=== PATIENT | male | born 1980 | race African-American/Black ===

== ENCOUNTER 2019-01-24 13:41 | Inpatient (IN) | payer OTHER ==
[2019-01-24 16:37] VITALS: BMI 29.7
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
[2019-01-24] MEDS ORDERED: MAGNESIUM CITRATE 300 ML BOTTLE PO PRN (17:35)
[2019-01-24] MEDS ORDERED: NICOTINE POLACRILEX 2 MG GUM BC PRN (17:35)
[2019-01-24] MEDS ORDERED: MAG HYDROX/AL HYDROX/SIMETH 30 ML UNIT-DOSE CUP PO PRN (17:35)
[2019-01-24] MEDS ORDERED: guaiFENesin 200 MG/10 ML 10 ML UNIT-DOSE CUPS PO PRN (17:35)
[2019-01-24] MEDS ORDERED: hydrOXYzine PAMOATE 25 MG CAPSULE (FP) PO PRN (17:35)
[2019-01-24] MEDS ORDERED: MAGNESIUM HYDROX 2400MG/30ML ORAL SUSPENSION 30 ML CUP PO PRN (17:35)
[2019-01-24] MEDS ORDERED: IBUPROFEN 400 MG TABLET (FP) PO PRN (17:35)
[2019-01-24] MEDS ORDERED: LOPERAMIDE HCL 2 MG CAPSULE PO PRN (17:35)
[2019-01-24] MEDS ORDERED: P-EPHED 60MG/TRIPROLIDI 2.5MG TABLET PO PRN (17:35)
[2019-01-24] MEDS ORDERED: MENTHOL/PHENOL 1 EACH UD MM PRN (17:35)
[2019-01-24] MEDS: QUEtiapine FUMARATE 200 MG TABLET PO SCH (21:06)
[2019-01-24] MEDS: THIAMINE HCL 100 MG TABLET (FP) PO SCH (21:07)
[2019-01-25] MEDS: PRENATAL VITAMINS W/ FOLIC ACID TABLET (FP) PO SCH (09:41)
[2019-01-25] MEDS ORDERED: MIRTAZAPINE 15 MG TABLET (FP) PO SCH (10:00)
[2019-01-25] MEDS: ACETAMINOPHEN 325 MG TABLET (FP) PO PRN (11:22)
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
[2019-01-25 14:34] LABS: HEMATOCRIT 44.4 % (35.4-49); HEMOGLOBIN 14.8 GM/dL (11.7-16.9); MCH 30.6 pg (25.7-33.7); MCHC 33.4 g/dl (32.0-35.9); MEAN CELL VOLUME 91.6 fl (80-96); MEAN PLT VOLUME 7.1 fl (7.5-11.1); PLATELET COUNT 311 K/MM3 (134-434); RBC 4.84 M/mm3 (4.00-5.60); RDW 15.6 % (11.9-15.9); WHITE BLOOD COUNT 6.9 K/mm3 (4.0-10.0)
[2019-01-25 14:39] LABS: ALBUMIN 3.8 g/dl (3.4-5.0); BILIRUBIN,TOTAL 0.4 mg/dL (0.2-1); CALCIUM 8.8 mg/dL (8.5-10.1); POTASSIUM 3.8 mmol/L (3.5-5.1); TOT PROT 7.2 g/dl (6.4-8.2)
[2019-01-25] MEDS: QUEtiapine FUMARATE 200 MG TABLET PO SCH (21:03)
[2019-01-25] MEDS: THIAMINE HCL 100 MG TABLET (FP) PO SCH (21:03)
[2019-01-26] MEDS: PRENATAL VITAMINS W/ FOLIC ACID TABLET (FP) PO SCH (09:42)
[2019-01-26 13:20] LABS: URINE APPEARANCE CLEAR; URINE BILIRUBIN NEGATIVE (NEGATIVE); URINE COLOR YELLOW; URINE GLUCOSE (UA) NEGATIVE (NEGATIVE); URINE KETONE NEGATIVE (NEGATIVE); URINE LEUK ESTERASE NEGATIVE (NEGATIVE); URINE NITRITE NEGATIVE (NEGATIVE); URINE PROTEIN NEGATIVE (NEGATIVE); URINE UROBILINOGEN 0.2 mg/dL (0.2-1.0)
[2019-01-26] MEDS: QUEtiapine FUMARATE 200 MG TABLET PO SCH (21:00)
[2019-01-26] MEDS: THIAMINE HCL 100 MG TABLET (FP) PO SCH (21:00)
[2019-01-26] MEDS: MELATONIN 5 MG TABLETS PO PRN (21:02)
[2019-01-27] MEDS: PRENATAL VITAMINS W/ FOLIC ACID TABLET (FP) PO SCH (09:49)
--- NOTE | 2019-01-27 09:59 | PN ---
J[facility] Progress Note Note: Patient requests to resume Remeron 45 mg/hs which he was on in the past and was ordered pn admission by Dr Elmore
[2019-01-27] MEDS: THIAMINE HCL 100 MG TABLET (FP) PO SCH (21:33)
[2019-01-27] MEDS: QUEtiapine FUMARATE 200 MG TABLET PO SCH (21:33)
[2019-01-27] MEDS: MIRTAZAPINE 15 MG TABLET (FP) PO SCH (21:35)
[2019-01-28] MEDS: PRENATAL VITAMINS W/ FOLIC ACID TABLET (FP) PO SCH (09:36)
[2019-01-28] MEDS: QUEtiapine FUMARATE 200 MG TABLET PO SCH (22:14)
[2019-01-28] MEDS: THIAMINE HCL 100 MG TABLET (FP) PO SCH (22:14)
[2019-01-28] MEDS: MIRTAZAPINE 15 MG TABLET (FP) PO SCH (22:15)
[2019-01-29] MEDS: PRENATAL VITAMINS W/ FOLIC ACID TABLET (FP) PO SCH (09:29)
[2019-01-29] MEDS: QUEtiapine FUMARATE 200 MG TABLET PO SCH (21:00)
[2019-01-29] MEDS: THIAMINE HCL 100 MG TABLET (FP) PO SCH (21:00)
[2019-01-29] MEDS: MIRTAZAPINE 15 MG TABLET (FP) PO SCH (21:00)
[2019-01-30] MEDS: PRENATAL VITAMINS W/ FOLIC ACID TABLET (FP) PO SCH (09:34)
[2019-01-30] MEDS: QUEtiapine FUMARATE 200 MG TABLET PO SCH (21:18)
[2019-01-30] MEDS: THIAMINE HCL 100 MG TABLET (FP) PO SCH (21:18)
[2019-01-30] MEDS: MIRTAZAPINE 15 MG TABLET (FP) PO SCH (21:18)
[2019-01-31] MEDS: PRENATAL VITAMINS W/ FOLIC ACID TABLET (FP) PO SCH (09:45)
[2019-01-31] MEDS: MIRTAZAPINE 15 MG TABLET (FP) PO SCH (21:12)
[2019-01-31] MEDS: QUEtiapine FUMARATE 200 MG TABLET PO SCH (21:12)
[2019-01-31] MEDS: THIAMINE HCL 100 MG TABLET (FP) PO SCH (21:12)
[2019-02-01] MEDS: PRENATAL VITAMINS W/ FOLIC ACID TABLET (FP) PO SCH (09:33)
[2019-02-01] MEDS: QUEtiapine FUMARATE 200 MG TABLET PO SCH (21:05)
[2019-02-01] MEDS: MIRTAZAPINE 15 MG TABLET (FP) PO SCH (21:05)
[2019-02-01] MEDS: THIAMINE HCL 100 MG TABLET (FP) PO SCH (21:05)
[2019-02-02] MEDS: PRENATAL VITAMINS W/ FOLIC ACID TABLET (FP) PO SCH (09:42)
[2019-02-02] MEDS: THIAMINE HCL 100 MG TABLET (FP) PO SCH (21:02)
[2019-02-02] MEDS: QUEtiapine FUMARATE 200 MG TABLET PO SCH (21:02)
[2019-02-02] MEDS: MIRTAZAPINE 15 MG TABLET (FP) PO SCH (21:02)
[2019-02-03] MEDS: PRENATAL VITAMINS W/ FOLIC ACID TABLET (FP) PO SCH (09:53)
[2019-02-03] MEDS: THIAMINE HCL 100 MG TABLET (FP) PO SCH (21:01)
[2019-02-03] MEDS: QUEtiapine FUMARATE 200 MG TABLET PO SCH (21:01)
[2019-02-03] MEDS: MIRTAZAPINE 15 MG TABLET (FP) PO SCH (21:01)
[2019-02-04] MEDS: PRENATAL VITAMINS W/ FOLIC ACID TABLET (FP) PO SCH (09:34)
[2019-02-04] MEDS: QUEtiapine FUMARATE 200 MG TABLET PO SCH (21:05)
[2019-02-04] MEDS: THIAMINE HCL 100 MG TABLET (FP) PO SCH (21:06)
[2019-02-04] MEDS: MIRTAZAPINE 15 MG TABLET (FP) PO SCH (21:06)
[2019-02-05] MEDS: PRENATAL VITAMINS W/ FOLIC ACID TABLET (FP) PO SCH (09:51)
[2019-02-05] MEDS ORDERED: cloNIDine HCL 0.1 MG TABLET PO ONE (20:53)
[2019-02-05] MEDS: THIAMINE HCL 100 MG TABLET (FP) PO SCH (21:04)
[2019-02-05] MEDS: QUEtiapine FUMARATE 200 MG TABLET PO SCH (21:04)
[2019-02-05] MEDS: MIRTAZAPINE 15 MG TABLET (FP) PO SCH (21:04)
[2019-02-06] MEDS: PRENATAL VITAMINS W/ FOLIC ACID TABLET (FP) PO SCH (10:00)
[2019-02-06] MEDS: QUEtiapine FUMARATE 200 MG TABLET PO SCH (21:04)
[2019-02-06] MEDS: MIRTAZAPINE 15 MG TABLET (FP) PO SCH (21:04)
[2019-02-06] MEDS: THIAMINE HCL 100 MG TABLET (FP) PO SCH (21:05)
[2019-02-07] MEDS: PRENATAL VITAMINS W/ FOLIC ACID TABLET (FP) PO SCH (09:59)
[2019-02-07] MEDS: QUEtiapine FUMARATE 200 MG TABLET PO SCH (21:10)
[2019-02-07] MEDS: THIAMINE HCL 100 MG TABLET (FP) PO SCH (21:10)
[2019-02-07] MEDS: MIRTAZAPINE 15 MG TABLET (FP) PO SCH (21:10)
[2019-02-08] MEDS: PRENATAL VITAMINS W/ FOLIC ACID TABLET (FP) PO SCH (09:54)
[2019-02-08] MEDS: THIAMINE HCL 100 MG TABLET (FP) PO SCH (21:06)
[2019-02-08] MEDS: QUEtiapine FUMARATE 200 MG TABLET PO SCH (21:06)
[2019-02-08] MEDS: MIRTAZAPINE 15 MG TABLET (FP) PO SCH (21:06)
[2019-02-09] MEDS: PRENATAL VITAMINS W/ FOLIC ACID TABLET (FP) PO SCH (10:04)
[2019-02-09] MEDS: MIRTAZAPINE 15 MG TABLET (FP) PO SCH (21:05)
[2019-02-09] MEDS: QUEtiapine FUMARATE 200 MG TABLET PO SCH (21:05)
[2019-02-09] MEDS: THIAMINE HCL 100 MG TABLET (FP) PO SCH (21:05)
[2019-02-09] MEDS: MELATONIN 5 MG TABLETS PO PRN (21:05)
[2019-02-10] MEDS: PRENATAL VITAMINS W/ FOLIC ACID TABLET (FP) PO SCH (09:40)
--- NOTE | 2019-02-10 11:50 | PN ---
[facility] Progress Note Note: patient s/p witnessed fall As per patient he went to sit on a chair, missed and fell on his buttocks Patient denies changes in mental status, reports no complaints at this time Denies pain at this time v/s stable AOx3 , no changes in LOC no adventitious breath sound no signs of trauma present full ROM ambulating in the unit with no signs of discomfort dx Fall Plan: Fall Protocol #2 Patient declined further eval in the ED, patient signed the refusal form continue to monitor Vital Signs Temperature 97.8 F 02/10/19 08:08 Pulse Rate 81 02/10/19 08:08 Respiratory Rate 18 02/10/19 08:08 Blood Pressure 147/99 02/10/19 08:08 O2 Sat by Pulse Oximetry (%) Laboratory Last Values WBC 6.9 K/mm3 (4.0-10.0) 01/25/19 08:20 RBC 4.84 M/mm3 (4.00-5.60) 01/25/19 08:20 Hgb 14.8 GM/dL (11.7-16.9) 01/25/19 08:20 Hct 44.4 % (35.4-49) 01/25/19 08:20 MCV 91.6 fl (80-96) 01/25/19 08:20 MCH 30.6 pg (25.7-33.7) 01/25/19 08:20 MCHC 33.4 g/dl (32.0-35.9) 01/25/19 08:20 RDW 15.6 % (11.9-15.9) 01/25/19 08:20 Plt Count 311 K/MM3 (134-434) 01/25/19 08:20 MPV 7.1 fl (7.5-11.1) L 01/25/19 08:20 Sodium 142 mmol/L (136-145) 01/25/19 08:20 Potassium 3.8 mmol/L (3.5-5.1) 01/25/19 08:20 Chloride 108 mmol/L (98-107) H 01/25/19 08:20 Carbon Dioxide 25 mmol/L (21-32) 01/25/19 08:20 Anion Gap 10 MMOL/L (8-16) 01/25/19 08:20 BUN 13.0 mg/dL (7-18) 01/25/19 08:20 Creatinine 1.0 mg/dL (0.55-1.3) 01/25/19 08:20 Est GFR (CKD-EPI)AfAm 110.17 01/25/19 08:20 Est GFR (CKD-EPI)NonAf 95.05 01/25/19 08:20 Random Glucose 113 mg/dL (74-106) H 01/25/19 08:20 Calcium 8.8 mg/dL (8.5-10.1) 01/25/19 08:20 Total Bilirubin 0.4 mg/dL (0.2-1) 01/25/19 08:20 AST 30 U/L (15-37) 01/25/19 08:20 ALT 50 U/L (13-61) 01/25/19 08:20 Alkaline Phosphatase 76 U/L (45-117) 01/25/19 08:20 Total Protein 7.2 g/dl (6.4-8.2) 01/25/19 08:20 Albumin 3.8 g/dl (3.4-5.0) 01/25/19 08:20 Urine Color Yellow 01/26/19 09:00 Urine Appearance Clear 01/26/19 09:00 Urine pH 6.0 (5.0-8.0) 01/26/19 09:00 Ur Specific Reynolds 1.006 (1.010-1.035) L 01/26/19 09:00 Urine Protein Negative (NEGATIVE) 01/26/19 09:00 Urine Glucose (UA) Negative (NEGATIVE) 01/26/19 09:00 Urine Ketones Negative (NEGATIVE) 01/26/19 09:00 Urine Blood Negative (NEGATIVE) 01/26/19 09:00 Urine Nitrite Negative (NEGATIVE) 01/26/19 09:00 Urine Bilirubin Negative (NEGATIVE) 01/26/19 09:00 Urine Urobilinogen 0.2 mg/dL (0.2-1.0) 01/26/19 09:00 Ur Leukocyte Esterase Negative (NEGATIVE) 01/26/19 09:00 RPR Titer Nonreactive (NONREACTIVE) 01/25/19 08:20 TB (QFT) Incubation (.) 01/25/19 08:20 TB Test (QFT) Nil 0.02 IU/mL (.) 01/25/19 08:20 TB Test (QFT) Mitogen >10.00 IU/mL (.) 01/25/19 08:20 TB Test (QFT) Antigen 0.01 IU/mL (.) 01/25/19 08:20 TB Test (QFT) Negative (Negative) 01/25/19 08:20 TB Positive Criteria (.) 01/25/19 08:20
[2019-02-10] MEDS: THIAMINE HCL 100 MG TABLET (FP) PO SCH (21:03)
[2019-02-10] MEDS: MIRTAZAPINE 15 MG TABLET (FP) PO SCH (21:03)
[2019-02-10] MEDS: QUEtiapine FUMARATE 200 MG TABLET PO SCH (21:03)
[2019-02-10] MEDS: MELATONIN 5 MG TABLETS PO PRN (21:04)
[2019-02-11] MEDS: PRENATAL VITAMINS W/ FOLIC ACID TABLET (FP) PO SCH (09:40)
[2019-02-11] MEDS: MIRTAZAPINE 15 MG TABLET (FP) PO SCH (21:02)
[2019-02-11] MEDS: THIAMINE HCL 100 MG TABLET (FP) PO SCH (21:02)
[2019-02-11] MEDS: QUEtiapine FUMARATE 200 MG TABLET PO SCH (21:02)
[2019-02-12] MEDS: PRENATAL VITAMINS W/ FOLIC ACID TABLET (FP) PO SCH (09:57)
[2019-02-12] MEDS: THIAMINE HCL 100 MG TABLET (FP) PO SCH (21:05)
[2019-02-12] MEDS: MIRTAZAPINE 15 MG TABLET (FP) PO SCH (21:05)
[2019-02-12] MEDS: QUEtiapine FUMARATE 200 MG TABLET PO SCH (21:05)
[2019-02-13] MEDS: PRENATAL VITAMINS W/ FOLIC ACID TABLET (FP) PO SCH (10:14)
[2019-02-13] MEDS: THIAMINE HCL 100 MG TABLET (FP) PO SCH (21:09)
[2019-02-13] MEDS: QUEtiapine FUMARATE 200 MG TABLET PO SCH (21:09)
[2019-02-13] MEDS: MIRTAZAPINE 15 MG TABLET (FP) PO SCH (21:09)
[2019-02-14] MEDS: PRENATAL VITAMINS W/ FOLIC ACID TABLET (FP) PO SCH (10:00)
[2019-02-14] MEDS: QUEtiapine FUMARATE 200 MG TABLET PO SCH (21:52)
[2019-02-14] MEDS: MIRTAZAPINE 15 MG TABLET (FP) PO SCH (21:53)
[2019-02-14] MEDS: THIAMINE HCL 100 MG TABLET (FP) PO SCH (21:54)
[2019-02-15] MEDS: PRENATAL VITAMINS W/ FOLIC ACID TABLET (FP) PO SCH (10:33)
[2019-02-15] MEDS: QUEtiapine FUMARATE 200 MG TABLET PO SCH (21:39)
[2019-02-15] MEDS: THIAMINE HCL 100 MG TABLET (FP) PO SCH (21:40)
[2019-02-15] MEDS: MIRTAZAPINE 15 MG TABLET (FP) PO SCH (21:40)
[2019-02-15] MEDS: MELATONIN 5 MG TABLETS PO PRN (21:40)
[2019-02-16] MEDS: ACETAMINOPHEN 325 MG TABLET (FP) PO PRN (10:29)
[2019-02-16] MEDS: PRENATAL VITAMINS W/ FOLIC ACID TABLET (FP) PO SCH (10:29)
[2019-02-16] MEDS: THIAMINE HCL 100 MG TABLET (FP) PO SCH (21:29)
[2019-02-16] MEDS: QUEtiapine FUMARATE 200 MG TABLET PO SCH (21:29)
[2019-02-16] MEDS: MIRTAZAPINE 15 MG TABLET (FP) PO SCH (21:30)
[2019-02-17] MEDS: PRENATAL VITAMINS W/ FOLIC ACID TABLET (FP) PO SCH (10:15)
[2019-02-17] MEDS: MIRTAZAPINE 15 MG TABLET (FP) PO SCH (21:25)
[2019-02-17] MEDS: QUEtiapine FUMARATE 200 MG TABLET PO SCH (21:26)
[2019-02-17] MEDS: THIAMINE HCL 100 MG TABLET (FP) PO SCH (21:26)
[2019-02-18] MEDS: PRENATAL VITAMINS W/ FOLIC ACID TABLET (FP) PO SCH (10:55)
[2019-02-18] MEDS: QUEtiapine FUMARATE 200 MG TABLET PO SCH (21:48)
[2019-02-18] MEDS: THIAMINE HCL 100 MG TABLET (FP) PO SCH (21:49)
[2019-02-18] MEDS: MELATONIN 5 MG TABLETS PO PRN (21:49)
[2019-02-18] MEDS: MIRTAZAPINE 15 MG TABLET (FP) PO SCH (21:49)
[2019-02-19] MEDS: PRENATAL VITAMINS W/ FOLIC ACID TABLET (FP) PO SCH (10:43)
--- NOTE | 2019-02-19 13:55 | PN ---
S Progress Note Note: Psychiatric nurse practitioner note: Patient scheduled for discharge tomorrow. A 30 day prescription of Seroquel 200mg HS + Remeron 45mg HS was electronically sent to [facility] at [address] [place] [address].
[2019-02-19] MEDS: MIRTAZAPINE 15 MG TABLET (FP) PO SCH (21:36)
[2019-02-19] MEDS: QUEtiapine FUMARATE 200 MG TABLET PO SCH (21:37)
[2019-02-19] MEDS: THIAMINE HCL 100 MG TABLET (FP) PO SCH (21:37)
[2019-02-19] MEDS: MELATONIN 5 MG TABLETS PO PRN (21:38)
[2019-02-19 22:35] VITALS: BP 140/81; PULSE 87; TEMP 98
--- NOTE | 2019-02-20 10:03 | DS ---
[facility] Rehab Discharge Summary - [facility] Rehab Discharge Summary Admission Date: 01/24/19 Discharge Date: 02/20/19 - History Present History: Cannabis dependence Additional Comments: Pt is a 38 y/o male admitted to rehab and discharging today after completion. Pt has been referred to [facility] for CD aftercare. Pertinent Past History: HTN PTST Anxiety - Discharge Physical Exam Vital Signs: Vital Signs Temperature 98 F 02/19/19 21:00 Pulse Rate 87 02/19/19 21:00 Respiratory Rate 18 02/20/19 07:14 Blood Pressure 140/81 02/19/19 21:00 O2 Sat by Pulse Oximetry (%) Alert o x 3 nad oob ambulating with steady gait Heent:Normocephalic,eomi,sean,hearing grossly normal Cardiac:s1 s2, rrr Lungs:cta,aaliyah. Extremities/skin:No edema,cyanosis;Full ROM; skin intact Pertinent Admission Physical Exam Findings: HTN PTSD Chronic Anxiety - Treatment Discharge Condition: Discharge condition good Hospital Course: rehabilitated safely and responded well CD aftercare referral accepted - Medication Discharge Medications: Ambulatory Orders Amitriptyline HCl [Elavil -] 50 mg PO DAILY 01/24/19 Mirtazapine [Remeron -] 45 mg PO DAILY 01/24/19 Quetiapine Fumarate [Seroquel] 200 mg PO HS 01/24/19 Trazodone HCl 150 mg PO HS 01/24/19 Mirtazapine [Remeron -] 45 mg PO HS #90 tablet 02/19/19 Quetiapine Fumarate [Seroquel -] 200 mg PO HS #30 tablet 02/19/19 Propranolol HCl 15 mg PO BID #30 tablet 02/20/19 - Medication-Assisted Treatment (MAT) Medication-Assisted Treatment (MAT): No - Discharge Instructions Diet, activity, other medical instructions: Diet:Low salt diet Activity: oob, ad yan Other medical instructions:Follow up with CD aftercare at [place], [place] [facility] [place] [place] [facility] [place]. - Diagnosis (1) Anxiety Status: Chronic (2) Cannabis dependence Status: Chronic (3) HTN (hypertension) Status: Chronic Qualifiers: Hypertension type: essential hypertension Qualified Code(s): I10 - Essential (primary) hypertension (4) Nicotine dependence Status: Chronic Qualifiers: Nicotine product type: cigarettes Substance use status: uncomplicated Qualified Code(s): F17.210 - Nicotine dependence, cigarettes, uncomplicated (5) PTSD (post-traumatic stress disorder) Status: Chronic - AMA Did Patient Leave Against Medical Advice: No
[2019-02-20] MEDS: PRENATAL VITAMINS W/ FOLIC ACID TABLET (FP) PO SCH (10:35)
== END 2019-02-20 10:50 | disposition home or self-care (01) | DRG 772 ==
LOC: YASAS 13:41 → Y5N 17:52 → Y3N 02-14 16:50 → Y5N 02-14 16:51
PROVIDERS: ADMIT Neuromusculoskeletal Medicine & OMM; ATTEND Neuromusculoskeletal Medicine & OMM
PROC: HZ42ZZZ Group Counseling for Substance Abuse Treatment, Cognitive-Behavioral (ICD-10-PCS; principal; 2019-01-24)
DX: F12.20 Cannabis dependence, uncomplicated (principal); F17.210 Nicotine dependence, cigarettes, uncomplicated; F43.10 Post-traumatic stress disorder, unspecified; F41.9 Anxiety disorder, unspecified; I10 Essential (primary) hypertension; Z91.81 History of falling; Z59.0 Homelessness
CPT/HCPCS: 36415; 80053; 81003; 85027; 86480; 86593; J0735